=== PATIENT | female | born 1975 | race Caucasian/White ===

== ENCOUNTER 2018-07-01 16:00 | Emergency (ER) | payer BC ==
[2018-07-01] MEDS ORDERED: IPRATROPIUM/ALBUTEROL (0.5MG/3MG) NEB INH ONE (16:48)
[2018-07-01] MEDS ORDERED: METHYLPREDNISOLONE PF 125MG/VIAL IM ONE (16:49)
--- NOTE | 2018-07-01 16:54 | Emergency Department Record ---
History of Present Illness - General Chief Complaint: Shortness of breath Stated Complaint: SCARLET,SINUS/CHEST CONGESTION,SWEATS Time Seen by Provider: 07/01/18 16:42 Source: Patient Mode of Arrival: Ambulatory Limitations: No limitations - History of Present Illness Initial Comments: pt has been sick for a month. she had a course of augmentin and is no better. she has yellow sinus drainage and yellow productive cough. she has been wheezing. MD Complaint: "Asthma attack" Onset/Timin -: Month(s) Known History Of: Asthma, Other Associated Symptoms: Cough Treatments Prior to Arrival: Bronchodilator, Other - Related Data Previous Rx's Medication Instructions Recorded Albuterol Sulfate [Ventolin Hfa] 1 - 2 puff IH .EVERY 4-6 HOURS PRN 07/01/18 #1 inhaler Azithromycin [Zithromax] 250 mg PO DAILY #4 tab 07/01/18 Prednisone [Prednisone 20Mg] 20 mg PO Q12HR #8 tab 07/01/18 Allergies Allergy/AdvReac Type Severity Reaction Status Date / Time sulfamethoxazole Allergy NAUSEA AND Verified 07/01/18 16:22 [From Bactrim] VOMITING trimethoprim [From Bactrim] Allergy NAUSEA AND Verified 07/01/18 16:22 VOMITING Travel Screening - Travel/Exposure Within Last 30 Days Have you traveled within the last 30 days?: No - Travel/Exposure Within Last Year Have you traveled outside the [place] in the last year?: No - Additonal Travel Details Have you been exposed to anyone with a communicable illness?: No - Travel Symptoms Symptom Screening: None Review of Systems Reviewed: No additional complaints except as noted below Constitutional: Reports: As per HPI. Denies: Chills, Fever, Malaise, Night sweats, Weakness, Weight change Eyes: Reports: As per HPI. Denies: Eye discharge, Eye pain, Photophobia, Vision change ENT: Reports: As per HPI. Denies: Congestion, Dental pain, Ear pain, Epistaxis , Hearing loss, Throat pain Respiratory: Reports: As per HPI, Cough, Dyspnea. Denies: Hemoptysis, Stridor, Wheezes Cardiovascular: Reports: As per HPI. Denies: Arrhythmia, Chest pain, Dyspnea on exertion, Edema, Murmurs, Orthopnea, Palpitations, Paroxysmal nocturnal dyspnea, Rheumatic Fever, Syncope Endocrine: Reports: As per HPI. Denies: Fatigue, Heat or cold intolerance, Polydipsia, Polyuria Gastrointestinal: Reports: As per HPI. Denies: Abdominal pain, Constipation, Diarrhea, Hematemesis, Hematochezia, Melena, Nausea, Vomiting Genitourinary: Reports: As per HPI. Denies: Abnormal menses, Discharge, Dyspareunia, Dysuria, Frequency, Hematuria, Incontinence, Retention, Urgency Musculoskeletal: Reports: As per HPI. Denies: Arthralgia, Back pain, Gout, Joint swelling, Myalgia, Neck pain Skin: Reports: As per HPI. Denies: Bruising, Change in color, Change in hair/ nails, Lesions, Pruritus, Rash Neurological: Reports: As per HPI. Denies: Abnormal gait, Confusion, Headache, Numbness, Paresthesias, Seizure, Tingling, Tremors, Vertigo, Weakness Psychiatric: Reports: As per HPI. Denies: Anxiety, Auditory hallucinations, Depression, Homicidal thoughts, Suicidal thoughts, Visual hallucinations Hematological/Lymphatic: Reports: As per HPI. Denies: Anemia, Blood Clots, Easy bleeding, Easy bruising, Swollen glands Past Medical History - SOCIAL HISTORY Smoking Status: Former smoker Alcohol Use: Rare Drug Use: None - RESPIRATORY Hx Respiratory Disorders: Yes Hx Asthma: Yes Hx Bronchitis: Yes Hx Pneumonia: Yes (bronchial) - CARDIOVASCULAR Hx Cardio Disorders: No - NEURO Hx Neuro Disorders: No - GI Hx GI Disorders: Yes Hx Reflux: Yes - Hx Genitourinary Disorders: No - ENDOCRINE Hx Endocrine Disorders: No - MUSCULOSKELETAL Hx Musculoskeletal Disorders: No - PSYCH Hx Psych Problems: Yes Hx Anxiety: Yes - HEMATOLOGY/ONCOLOGY Hx Hematology/Oncology Disorders: No Family Medical History Any Significant Family History?: No Hx Alcohol Use: Father, Mother Hx Anxiety: Father, Mother Hx Cancer: Father Hx Depression: Father, Mother Hx HTN: Father, Mother Hx Resp Disorders: Father, Grandparents Hx Stroke: Father Physical Exam - General General Appearance: Alert, Oriented x3, Cooperative, Mild distress - Head Head exam: Normal inspection - Eye Eye exam: Normal appearance, PERRL, EOMI Pupils: Normal accommodation - ENT ENT exam: Normal exam, Mucous membranes moist, Normal external ear exam, Normal orophraynx Ear exam: Normal external inspection. negative: External canal tenderness Nasal Exam: Normal inspection. negative: Discharge, Sinus tenderness Mouth exam: Normal external inspection, Tongue normal Teeth exam: Normal inspection. negative: Dental caries Throat exam: Normal inspection. negative: Tonsillar erythema, Tonsillar exudate - Neck Neck exam: Normal inspection, Full ROM. negative: Tenderness - Respiratory Respiratory exam: Respiratory distress, Wheezes - Cardiovascular Cardiovascular Exam: Regular rate, Normal rhythm, Normal heart sounds - GI/Abdominal GI/Abdominal exam: Soft, Normal bowel sounds. negative: Tenderness - Rectal Rectal exam: Deferred - exam: Deferred - Extremities Extremities exam: Normal inspection, Full ROM, Normal capillary refill. negative: Tenderness - Back Back exam: Reports: Normal inspection, Full ROM. Denies: Muscle spasm, Rash noted, Tenderness - Neurological Neurological exam: Alert, CN II-XII intact, Normal gait, Oriented X3 - Psychiatric Psychiatric exam: Normal affect, Normal mood - Skin Skin exam: Dry, Intact, Normal color, Warm Course Vital Signs 07/01/18 16:14 Temperature 98.7 F Pulse Rate 87 Respiratory 18 Rate Blood Pressure 142/89 Pulse Ox 97 Disposition Disposition: Discharge Clinical Impression: Asthmatic bronchitis with acute exacerbation Qualifiers: Asthma severity: moderate Asthma persistence: persistent Qualified Code(s): J45.41 - Moderate persistent asthma with (acute) exacerbation Sinusitis Qualifiers: Sinusitis location: unspecified location Chronicity: acute Recurrence: recurrent Qualified Code(s): J01.91 - Acute recurrent sinusitis, unspecified Disposition: Home, Self-Care Condition: (1) Good Instructions: Asthma (ED), Acute Bronchitis (ED), Sinusitis (ED) Additional Instructions: follow up with family doctor. return sooner if worse. Prescriptions: Prednisone [Prednisone 20Mg] 20 mg PO Q12HR #8 tab Albuterol Sulfate [Ventolin Hfa] 1 - 2 puff IH .EVERY 4-6 HOURS PRN #1 inhaler PRN Reason: Difficulty In Breathing Azithromycin [Zithromax] 250 mg PO DAILY #4 tab Forms: Patient Portal Access, Return to Work/School Quality - Quality Measures Quality Measures: N/A - Blood Pressure Screening Does Patient Have Any of the Following: No Blood Pressure Classification: Pre-Hypertensive BP Reading Systolic Measurement: 142 Diastolic Measurement: 89 Screening for High Blood Pressure: < Pre-Hypertensive BP, F/U Documented > [ G8950] Pre-Hypertensive Follow-up Interventions: Follow-up with rescreen every year.
[2018-07-01] MEDS ORDERED: ALBUTEROL SULFATE (0.083%) 2.5 MG/3 ML NEB INH ONE (18:09)
[2018-07-01] MEDS ORDERED: AZITHROMYCIN 500 MG TABLET PO ONE (18:10)
--- NOTE | 2018-07-01 18:26 | Emergency Department Record ---
History of Present Illness - General Chief Complaint: Shortness of breath Stated Complaint: SCARLET,SINUS/CHEST CONGESTION,SWEATS Time Seen by Provider: 07/01/18 16:42 Source: Patient Mode of Arrival: Ambulatory Limitations: No limitations - History of Present Illness Onset/Timin -: Month(s) Known History Of: Asthma, Other Associated Symptoms: Cough Treatments Prior to Arrival: Bronchodilator, Other - Related Data Previous Rx's Medication Instructions Recorded Albuterol Sulfate 0.083% [Neb] 3 ml NEB .EVERY 4-6 HOURS #1 box 07/01/18 [Albuterol Sulfate] Albuterol Sulfate [Ventolin Hfa] 1 - 2 puff IH .EVERY 4-6 HOURS PRN 07/01/18 #1 inhaler Azithromycin [Zithromax] 250 mg PO DAILY #4 tab 07/01/18 Prednisone [Prednisone 20Mg] 20 mg PO Q12HR #8 tab 07/01/18 Allergies Allergy/AdvReac Type Severity Reaction Status Date / Time sulfamethoxazole Allergy NAUSEA AND Verified 07/01/18 16:22 [From Bactrim] VOMITING trimethoprim [From Bactrim] Allergy NAUSEA AND Verified 07/01/18 16:22 VOMITING Travel Screening - Travel/Exposure Within Last 30 Days Have you traveled within the last 30 days?: No - Travel/Exposure Within Last Year Have you traveled outside the [place] in the last year?: No - Additonal Travel Details Have you been exposed to anyone with a communicable illness?: No - Travel Symptoms Symptom Screening: None Review of Systems Constitutional: Reports: As per HPI. Denies: Chills, Fever, Malaise, Night sweats, Weakness, Weight change Eyes: Reports: As per HPI. Denies: Eye discharge, Eye pain, Photophobia, Vision change ENT: Reports: As per HPI. Denies: Congestion, Dental pain, Ear pain, Epistaxis , Hearing loss, Throat pain Respiratory: Reports: As per HPI, Cough, Dyspnea. Denies: Hemoptysis, Stridor, Wheezes Cardiovascular: Reports: As per HPI. Denies: Arrhythmia, Chest pain, Dyspnea on exertion, Edema, Murmurs, Orthopnea, Palpitations, Paroxysmal nocturnal dyspnea, Rheumatic Fever, Syncope Endocrine: Reports: As per HPI. Denies: Fatigue, Heat or cold intolerance, Polydipsia, Polyuria Gastrointestinal: Reports: As per HPI. Denies: Abdominal pain, Constipation, Diarrhea, Hematemesis, Hematochezia, Melena, Nausea, Vomiting Genitourinary: Reports: As per HPI. Denies: Abnormal menses, Discharge, Dyspareunia, Dysuria, Frequency, Hematuria, Incontinence, Retention, Urgency Musculoskeletal: Reports: As per HPI. Denies: Arthralgia, Back pain, Gout, Joint swelling, Myalgia, Neck pain Skin: Reports: As per HPI. Denies: Bruising, Change in color, Change in hair/ nails, Lesions, Pruritus, Rash Neurological: Reports: As per HPI. Denies: Abnormal gait, Confusion, Headache, Numbness, Paresthesias, Seizure, Tingling, Tremors, Vertigo, Weakness Psychiatric: Reports: As per HPI. Denies: Anxiety, Auditory hallucinations, Depression, Homicidal thoughts, Suicidal thoughts, Visual hallucinations Hematological/Lymphatic: Reports: As per HPI. Denies: Anemia, Blood Clots, Easy bleeding, Easy bruising, Swollen glands Past Medical History - SOCIAL HISTORY Smoking Status: Former smoker Alcohol Use: Rare Drug Use: None - RESPIRATORY Hx Respiratory Disorders: Yes Hx Asthma: Yes Hx Bronchitis: Yes Hx Pneumonia: Yes (bronchial) - CARDIOVASCULAR Hx Cardio Disorders: No - NEURO Hx Neuro Disorders: No - GI Hx GI Disorders: Yes Hx Reflux: Yes - Hx Genitourinary Disorders: No - ENDOCRINE Hx Endocrine Disorders: No - MUSCULOSKELETAL Hx Musculoskeletal Disorders: No - PSYCH Hx Psych Problems: Yes Hx Anxiety: Yes - HEMATOLOGY/ONCOLOGY Hx Hematology/Oncology Disorders: No Family Medical History Any Significant Family History?: No Hx Alcohol Use: Father, Mother Hx Anxiety: Father, Mother Hx Cancer: Father Hx Depression: Father, Mother Hx HTN: Father, Mother Hx Resp Disorders: Father, Grandparents Hx Stroke: Father Physical Exam - General Limitations: No limitations Course Vital Signs 07/01/18 07/01/18 07/01/18 16:14 16:52 17:25 Temperature 98.7 F Pulse Rate 87 90 Pulse Rate [ 89 Pulse Ox Probe] Respiratory 18 20 16 Rate Blood Pressure 142/89 Blood Pressure 141/69 [Right Arm] Pulse Ox 97 98 98 07/01/18 18:13 Temperature Pulse Rate 85 Pulse Rate [ Pulse Ox Probe] Respiratory 20 Rate Blood Pressure Blood Pressure [Right Arm] Pulse Ox 99 Disposition Clinical Impression: Asthmatic bronchitis with acute exacerbation Qualifiers: Asthma severity: moderate Asthma persistence: persistent Qualified Code(s): J45.41 - Moderate persistent asthma with (acute) exacerbation Sinusitis Qualifiers: Sinusitis location: unspecified location Chronicity: acute Recurrence: recurrent Qualified Code(s): J01.91 - Acute recurrent sinusitis, unspecified Disposition: Home, Self-Care Condition: (1) Good Instructions: Asthma (ED), Sinusitis (ED), Acute Bronchitis (ED) Additional Instructions: follow up with family doctor. return sooner if worse. Prescriptions: Prednisone [Prednisone 20Mg] 20 mg PO Q12HR #8 tab Albuterol Sulfate [Ventolin Hfa] 1 - 2 puff IH .EVERY 4-6 HOURS PRN #1 inhaler PRN Reason: Difficulty In Breathing Albuterol Sulfate 0.083% [Neb] [Albuterol Sulfate] 3 ml NEB .EVERY 4-6 HOURS #1 box Azithromycin [Zithromax] 250 mg PO DAILY #4 tab Forms: Patient Portal Access, Return to Work/School Quality - Quality Measures Quality Measures: N/A - Blood Pressure Screening Does Patient Have Any of the Following: No Blood Pressure Classification: Pre-Hypertensive BP Reading Systolic Measurement: 142 Diastolic Measurement: 89 Screening for High Blood Pressure: < Pre-Hypertensive BP, F/U Documented > [ G8950] Pre-Hypertensive Follow-up Interventions: Follow-up with rescreen every year.
--- NOTE | 2018-07-03 19:01 | RADIOLOGY REPORT ---
DATE: 07/01/2018 at 1730. EXAM: TWO-VIEW CHEST. HISTORY: Difficulty breathing. TECHNIQUE: Two views of the chest were obtained. FINDINGS: The lungs are clear. Cardiac size and pulmonary vascularity are normal. There are no effusions. IMPRESSION: NEGATIVE CHEST JOB NUMBER: [id number] MTDD
== END 2018-07-01 18:58 | disposition home or self-care (01) ==
LOC: ER 16:00
DX: J45.41 Moderate persistent asthma with (acute) exacerbation (principal); J01.91 Acute recurrent sinusitis, unspecified; Z87.891 Personal history of nicotine dependence
CPT/HCPCS: 71046; 94640; 96372; 99284; J2930; J7613

== ENCOUNTER 2018-12-11 09:44 | Emergency (ER) | payer BC ==
[2018-12-11] MEDS ORDERED: 0.9 % SODIUM CHLORIDE 1,000 ML BAG IV ONE (10:34)
[2018-12-11 10:55] LABS: ABSOLUTE NEUTROPHIL COUNT 5.83; BASO % 0.3 % (0-6); EOS % 5.1 % (0-6); GRAN % 67.4 % (47-80); HEMATOCRIT 38.4 % (35.0-47.0); HEMOGLOBIN 11.8 gm/dl (11.6-16.0); LYMPH % 20.6 % (16-45); MEAN CELL VOLUME 94.1 fl (81-97); MEAN CORPUSCULAR HEMOGLOBIN 28.9 pg (27-33); MEAN CORPUSCULAR HGB CONC 30.7 g/dl (32-36); MEAN PLATELET VOLUME 10.3 fl (7.4-10.4); MONO % 6.6 % (0-9); PLATELET COUNT 342 K/uL (130-400); RED BLOOD COUNT 4.08 M/uL (3.80-5.40); RED CELL DISTRIBUTION WIDTH 14.2 % (11.5-14.5); WHITE BLOOD COUNT W/O DIFF 8.7 K/uL (4.2-12.2)
[2018-12-11 10:56] LABS: URINE APPEARANCE CLEAR; URINE BILIRUBIN NEGATIVE (NEGATIVE); URINE BLOOD SMALL (NEGATIVE); URINE COLOR YELLOW; URINE GLUCOSE (UA) NEGATIVE (NEGATIVE); URINE KETONE NEGATIVE (NEGATIVE); URINE LEUKOCYTE ESTERASE NEGATIVE (NEGATIVE); URINE NITRITE NEGATIVE (NEGATIVE); URINE PROTEIN NEGATIVE (NEGATIVE); URINE UROBILINOGEN 0.2 E.U./dL (0.20 - 1.00)
[2018-12-11 10:57] LABS: HCG,QUALITATIVE URINE NEGATIVE (NEGATIVE)
[2018-12-11 11:03] LABS: URINE BACTERIA FEW; URINE RBC 0 - 2 (NONE SEEN); URINE WBC NONE SEEN (0-2/hpf)
[2018-12-11 11:04] LABS: BLOOD UREA NITROGEN 7 mg/dL (6-20); CREATININE 0.6 mg/dL (0.5-0.9); EST GLOMERULAR FILTRATION RATE > 60 mL/min
[2018-12-11 11:05] LABS: BILIRUBIN,TOTAL < 0.20 mg/dL (0.2-1.0); LIPASE 25 U/L (13-60); TOTAL PROTEIN 6.8 g/dL (6.6-8.7)
[2018-12-11 11:07] LABS: GLUCOSE,RANDOM 97 mg/dL (74-109)
[2018-12-11 11:10] LABS: ALB/GLOB RATIO 1.6 (1.1-1.8); ALBUMIN 4.2 g/dL (4.0-5.0); ALKALINE PHOSPHATASE 61 U/L (35-104); ALT/SGPT 15 U/L (<33); AST/SGOT 13 U/L (10.0-35.0)
--- NOTE | 2018-12-11 11:13 | Emergency Department Record ---
History of Present Illness - General Chief Complaint: Abdominal Pain Stated Complaint: ABD PAIN Time Seen by Provider: 12/11/18 10:26 Source: Patient Mode of Arrival: Ambulatory Limitations: No limitations - History of Present Illness Initial Comments: pt has llq ap and blood in her urine since yesterday Complaint: Abdominal pain Onset/Timin -: Month(s) Location: L Flank, LLQ Radiation: L flank, LLQ Migration to: L Flank, LLQ Severity: Mild Severity scale (1-10): 3 Quality: Aching, Sharp Consistency: Constant, Intermittent Improves With: Nothing Worsens With: Nothing - Related Data LMP (females 10-50): Last week Patient : No Previous Rx's Medication Instructions Recorded Albuterol Sulfate [Ventolin Hfa] 1 - 2 puff IH .EVERY 4-6 HOURS PRN 07/01/18 #1 inhaler Allergies Allergy/AdvReac Type Severity Reaction Status Date / Time sulfamethoxazole AdvReac NAUSEA AND Verified 12/11/18 10:39 [From Bactrim] VOMITING trimethoprim [From Bactrim] AdvReac NAUSEA AND Verified 12/11/18 10:39 VOMITING Travel Screening - Travel/Exposure Within Last 30 Days Have you traveled within the last 30 days?: No Review of Systems Reviewed: No additional complaints except as noted below Constitutional: Reports: As per HPI. Denies: Chills, Fever, Malaise, Night swe ats, Weakness, Weight change Eyes: Reports: As per HPI. Denies: Eye discharge, Eye pain, Photophobia, Vision change ENT: Reports: As per HPI. Denies: Congestion, Dental pain, Ear pain, Epistaxis, Hearing loss, Throat pain Respiratory: Reports: As per HPI. Denies: Cough, Dyspnea, Hemoptysis, Stridor, Wheezes Cardiovascular: Reports: As per HPI. Denies: Arrhythmia, Chest pain, Dyspnea on exertion, Edema, Murmurs, Orthopnea, Palpitations, Paroxysmal nocturnal dyspnea, Rheumatic Fever, Syncope Endocrine: Reports: As per HPI. Denies: Fatigue, Heat or cold intolerance, Polydipsia, Polyuria Gastrointestinal: Reports: As per HPI. Denies: Abdominal pain, Constipation, Diarrhea, Hematemesis, Hematochezia, Melena, Nausea, Vomiting Genitourinary: Reports: As per HPI. Denies: Abnormal menses, Discharge, Dyspareunia, Dysuria, Frequency, Hematuria, Incontinence, Retention, Urgency Musculoskeletal: Reports: As per HPI. Denies: Arthralgia, Back pain, Gout, Joint swelling, Myalgia, Neck pain Skin: Reports: As per HPI. Denies: Bruising, Change in color, Change in hair/ nails, Lesions, Pruritus, Rash Neurological: Reports: As per HPI. Denies: Abnormal gait, Confusion, Headache, Numbness, Paresthesias, Seizure, Tingling, Tremors, Vertigo, Weakness Psychiatric: Reports: As per HPI. Denies: Anxiety, Auditory hallucinations, Depression, Homicidal thoughts, Suicidal thoughts, Visual hallucinations Hematological/Lymphatic: Reports: As per HPI. Denies: Anemia, Blood Clots, Easy bleeding, Easy bruising, Swollen glands Past Medical History - SOCIAL HISTORY Smoking Status: Current every day smoker Alcohol Use: None Drug Use: None - RESPIRATORY Hx Respiratory Disorders: Yes Hx Asthma: Yes Hx Bronchitis: Yes Hx Pneumonia: Yes (bronchial) - CARDIOVASCULAR Hx Cardio Disorders: No - NEURO Hx Neuro Disorders: No - GI Hx GI Disorders: Yes Hx Reflux: Yes - Hx Genitourinary Disorders: No - ENDOCRINE Hx Endocrine Disorders: No - MUSCULOSKELETAL Hx Musculoskeletal Disorders: No - PSYCH Hx Psych Problems: Yes Hx Anxiety: Yes - HEMATOLOGY/ONCOLOGY Hx Hematology/Oncology Disorders: No Family Medical History Any Significant Family History?: Yes Hx Alcohol Use: Father, Mother Hx Anxiety: Father, Mother Hx Cancer: Father Hx Depression: Father, Mother Hx HTN: Father, Mother Hx Resp Disorders: Father, Grandparents Hx Stroke: Father Physical Exam - General General Appearance: Alert, Oriented x3, Cooperative, Mild distress - Head Head exam: Normal inspection - Eye Eye exam: Normal appearance, PERRL, EOMI Pupils: Normal accommodation - ENT ENT exam: Normal exam, Mucous membranes moist, Normal external ear exam, Normal orophraynx Ear exam: Normal external inspection. negative: External canal tenderness Nasal Exam: Normal inspection. negative: Discharge, Sinus tenderness Mouth exam: Normal external inspection, Tongue normal Teeth exam: Normal inspection. negative: Dental caries Throat exam: Normal inspection. negative: Tonsillar erythema, Tonsillar exudate - Neck Neck exam: Normal inspection, Full ROM. negative: Tenderness - Respiratory Respiratory exam: Normal lung sounds bilaterally. negative: Respiratory distress - Cardiovascular Cardiovascular Exam: Regular rate, Normal rhythm, Normal heart sounds - GI/Abdominal GI/Abdominal exam: Soft, Normal bowel sounds, Tenderness (llq) - Rectal Rectal exam: Deferred - exam: Deferred - Extremities Extremities exam: Normal inspection, Full ROM, Normal capillary refill. negative: Tenderness - Back Back exam: Reports: Normal inspection, Full ROM. Denies: Muscle spasm, Rash noted, Tenderness - Neurological Neurological exam: Alert, CN II-XII intact, Normal gait, Oriented X3 - Psychiatric Psychiatric exam: Normal affect, Normal mood - Skin Skin exam: Dry, Intact, Normal color, Warm Course Vital Signs 12/11/18 09:50 Temperature 97.8 F Pulse Rate 101 H Respiratory 20 Rate Blood Pressure 153/86 Pulse Ox 98 - Reevaluation(s) Reevaluation #1: 12/11/18 15:03 ct neg, us shows small cysts bilaterlally Medical Decision Making - Lab Data Result diagrams: 12/11/18 10:45 12/11/18 10:45 Lab Results 12/11/18 12/11/18 Range/Units 10:45 10:45 WBC 8.7 (4.2-12.2) K/uL RBC 4.08 (3.80-5.40) M/uL Hgb 11.8 (11.6-16.0) gm/dl Hct 38.4 (35.0-47.0) % MCV 94.1 (81-97) fl MCH 28.9 (27-33) pg MCHC 30.7 L (32-36) g/dl RDW 14.2 (11.5-14.5) % Plt Count 342 (130-400) K/uL MPV 10.3 (7.4-10.4) fl Gran % 67.4 (47-80) % Lymphocytes % 20.6 (16-45) % Monocytes % 6.6 (0-9) % Eosinophils % 5.1 (0-6) % Basophils % 0.3 (0-6) % Absolute Neutrophils 5.83 Urine Color Yellow Urine Appearance Clear Urine pH 6.5 (5.0-8.0) Ur Specific [place] 1.020 (1.002-1.030) Urine Protein Negative (NEGATIVE) Urine Glucose (UA) Negative (NEGATIVE) Urine Ketones Negative (NEGATIVE) Urine Blood Small H (NEGATIVE) Urine Nitrite Negative (NEGATIVE) Urine Bilirubin Negative (NEGATIVE) Urine Urobilinogen 0.2 (0.20 - 1.00) E.U./dL Ur Leukocyte Esterase Negative (NEGATIVE) Urine RBC 0 - 2 (NONE SEEN) Urine WBC None seen (0-2/hpf) Ur Epithelial Cells 10 - 15 (FEW) Urine Bacteria Few Urine HCG, Qual Negative (NEGATIVE) Disposition Disposition: Discharge Clinical Impression: Abdominal pain Qualifiers: Abdominal location: left lower quadrant Qualified Code(s): R10.32 - Left lower quadrant pain Disposition: Home, Self-Care Condition: (1) Good Instructions: Abdominal Pain (ED) Additional Instructions: follow up with family doctor and with GI doctor. return sooner if worse. Forms: Patient Portal Access Quality - Quality Measures Quality Measures: N/A - Blood Pressure Screening Does Patient Have Any of the Following: No Blood Pressure Classification: Pre-Hypertensive BP Reading Systolic Measurement: 153 Diastolic Measurement: 86 Screening for High Blood Pressure: < Pre-Hypertensive BP, F/U Documented > [G8950] Pre-Hypertensive Follow-up Interventions: Follow-up with rescreen every year.
--- NOTE | 2018-12-12 09:01 | CT SCAN REPORT ---
EXAM: EMERGENCY CT OF THE ABDOMEN AND PELVIS WITHOUT CONTRAST HISTORY: INTERMITTENT LEFT LOWER QUADRANT PAIN FOR 2-3 MONTHS. TECHNIQUE: Axial CT scan of the abdomen and pelvis was obtained without oral or IV contrast. Comparison: No prior CT with which to compare. FINDINGS: No calcified gallstones are seen within the gallbladder. No definite intrarenal calculi identified on either side. No hydronephrosis or hydroureter is seen on either side. As such the nondilated ureters are somewhat difficult to follow in their entire course throughout the retroperitoneum and pelvis in their nondilated state, but no definite ureteral calculus seen on either side and no bladder calculus evident. There are a couple linear metallic densities in the pelvis bilaterally probably related to prior tubal ligation procedure. Tiny umbilical hernia containing adipose tissue, but no bowel. Evaluation of the bowel and viscera extremely limited without oral or IV contrast. Given this limitation, no definite hepatic, splenic, adrenal, pancreatic, or renal mass identified. There is some fullness of the uterine fundus measuring about 7.3 cm in transverse diameter. There is probably a small left ovarian cyst about 1.4 cm in size. If there is clinical concern for the gynecologic viscera, follow-up pelvic ultrasound would be suggested for further evaluation. The appendix is visualized and appears negative with no appendicitis evident. No definite diverticulitis seen, however, there is some hazy density in the adipose tissue adjacent to the anterior aspect of the upper sigmoid colon. This suggests some mild inflammatory change in this region and perhaps this represents a mild epiploic appendagitis. Minor streaky atelectasis or infiltrate in both lung bases. No definite free intraperitoneal air or free intraperitoneal fluid evident. Mild spurring in the mid lumbar spine. IMPRESSION: 1. NO DEFINITE URINARY TRACT CALCULI OR HYDRONEPHROSIS EVIDENT. 2. NO APPENDICITIS IDENTIFIED. 3. APPEARANCE SUGGESTING SOME MILD INFLAMMATORY CHANGE ADJACENT TO THE ANTERIOR ASPECT OF THE UPPER SIGMOID COLON, BUT NO ASSOCIATED INFLAMED DIVERTICULUM IS SEEN. THIS MAY REPRESENT SOME MILD NONSPECIFIC INFLAMMATORY CHANGE, PERHAPS EPIPLOIC APPENDAGITIS. 4. SMALL UMBILICAL HERNIA CONTAINING ADIPOSE TISSUE, BUT NO BOWEL. 5. SOME FULLNESS OF THE UTERUS AND PROBABLY A SMALL LEFT OVARIAN CYST. 6. PROBABLE POSTOP TUBAL LIGATION. JOB NUMBER: [id number] [facility] [place] [facility]
--- NOTE | 2018-12-12 09:32 | ULTRASOUND REPORT ---
EXAM: PELVIC ULTRASOUND WITH TRANSVAGINAL AND DOPPLER HISTORY: PAIN LEFT ADNEXA AND FLANK PAIN. NEGATIVE TEST. TECHNIQUE: Real-time ultrasound examination of the pelvis was performed utilizing transabdominal and transvaginal technique. Doppler ultrasound was performed because of pain, with color flow and spectral analysis Doppler. Comparison: No prior pelvic ultrasound with which to compare. Comparison is made with the pelvic CT performed earlier today on 12/11/18. FINDINGS: TRANSABDOMINAL PELVIC ULTRASOUND: The uterus is identified measuring about 4.4 cm in AP x 6.6 cm in transverse diameters x 9.2 cm in length. The endometrial stripe measured at about 6.3 mm in thickness, within normal limits. No definite intrauterine fluid collection or focal uterine myometrial mass evident on the transabdominal images. The left ovary is identified measuring about 4.2 cm in size with arterial flow demonstrated with Doppler. The right ovary is identified measuring 3.1 cm in size with venous flow evident with Doppler. No definite adnexal mass seen on either side with just some tiny ovarian cysts present bilaterally. No definite free fluid seen. TRANSVAGINAL PELVIC ULTRASOUND: In an effort to better visualize the gynecologic viscera, transvaginal study also performed. Numerous small cervical nabothian cysts are seen, all less than 1 cm in size. A small amount of nonspecific free fluid in the cul-de-sac may simply be physiologic in nature. The endometrial stripe measured at about 8 mm in diameter, within normal limits. No definite intrauterine fluid collection or focal uterine myometrial mass identified. The left ovary is identified measuring about 3.4 cm in size and containing some small follicles. Venous flow is demonstrated in the left ovary. The right ovary is identified measuring about 3.1 cm in size and demonstrating some small follicles. Arterial flow evident in the right ovary. Some additional limited images of the patient's left side of her back were obtained apparently of an area of a clinically evident lump as indicated by the hydroelectric station operator. The hydroelectric station operator has marked an approximately 1.8 x 1.8 x 1.1 cm solid appearing somewhat oval structure. This is not a simple cyst and is of uncertain significance. This could be a lipoma although is nonspecific and correlation with physical exam is suggested. IMPRESSION: 1. MULTIPLE SMALL CERVICAL NABOTHIAN CYSTS. THE UTERUS APPEARS OTHERWISE NEGATIVE. 2. SMALL AMOUNT OF NONSPECIFIC FREE FLUID IN THE CUL-DE-SAC MAY SIMPLY BE PHYSIOLOGIC. 3. SMALL CYSTS IN BOTH OVARIES. 4. OVAL SOLID MASS LIKE AREA ALONG THE PATIENT'S BACK ABOUT 1.8 CM IN MAXIMUM DIAMETER, NONSPECIFIC DESCRIBED ABOVE. JOB NUMBER: [id number] MTDD
== END 2018-12-11 15:18 | disposition home or self-care (01) ==
LOC: ER 09:44
DX: R10.32 Left lower quadrant pain (principal); F17.210 Nicotine dependence, cigarettes, uncomplicated
CPT/HCPCS: 74176; 76830; 76856; 80053; 81001; 81025; 83690; 85025; 99284; J7030

== ENCOUNTER 2019-07-10 18:05 | Observation (INO) | payer BC ==
[2019-07-10] MEDS ORDERED: IPRATROPIUM/ALBUTEROL (0.5MG/3MG) NEB INH ONE (18:32)
[2019-07-10] MEDS ORDERED: 0.9 % SODIUM CHLORIDE 1,000 ML BAG IV ONE (18:40)
--- NOTE | 2019-07-10 18:45 | Emergency Department Record ---
History of Present Illness - General Chief Complaint: Shortness of breath Stated Complaint: SCARLET,DX FLU A AND B Time Seen by Provider: 07/10/19 18:34 Source: Patient Mode of Arrival: Ambulatory Limitations: No limitations - History of Present Illness Initial Comments: The patient is here due to not feeling well for 18 hours. She has developed a cough, congestion, and SOB since this morning. The patient does have a hx of asthma and does feel like she is wheezing. She was in the [facility] 8 hours ago and was diagnosed with Flu A and B and did have a neg CXR 7 hours ago. The patient did also receive a Duoneb tx, steroid shot and did feel better. Now due to the SOB she did return to the ER. Presently she is doing better and did have a Duoneb in the ER and has RA biox of 98%. There has been no fever, nausea, vomiting, or diarrhea. The patient has a hx of mild asthma and has never been admitted to the ICU or Intubated. She also has been admitted to the hospital as an adult but it was many years ago. MD Complaint: "Asthma attack", Cough, Shortness of breath Onset/Timin -: Hour(s) Improves With: Nothing Worsens With: Nothing Known History Of: Asthma - Related Data Previous Rx's Medication Instructions Recorded Albuterol Sulfate [Ventolin Hfa] 1 - 2 puff IH .EVERY 4-6 HOURS PRN 07/01/18 #1 inhaler Allergies Allergy/AdvReac Type Severity Reaction Status Date / Time sulfamethoxazole AdvReac NAUSEA AND Verified 07/10/19 18:31 [From Bactrim] VOMITING trimethoprim [From Bactrim] AdvReac NAUSEA AND Verified 07/10/19 18:31 VOMITING Travel/Exposure Screening - Travel/Exposure Within Last 30 Days Have you traveled within the last 30 days?: No - Travel/Exposure Within Last Year Have you traveled outside the [place] in the last year?: No - Additonal Travel/Exposure Details Have you been exposed to anyone with a communicable illness?: No Review of Systems Constitutional: Denies: Chills, Fever Eyes: Denies: Eye discharge, Eye pain ENT: Reports: Congestion Respiratory: Reports: Cough, Dyspnea. Denies: Hemoptysis Cardiovascular: Denies: Chest pain Endocrine: Reports: Fatigue Gastrointestinal: Denies: Nausea Genitourinary: Denies: Dysuria Musculoskeletal: Denies: Arthralgia Past Medical History - SOCIAL HISTORY Smoking Status: Light tobacco smoker (<10/day) Alcohol Use: Rare Drug Use: None - RESPIRATORY Hx Respiratory Disorders: Yes Hx Asthma: Yes Hx Bronchitis: Yes Hx Pneumonia: Yes (bronchial) - CARDIOVASCULAR Hx Cardio Disorders: No - NEURO Hx Neuro Disorders: No - GI Hx GI Disorders: Yes Hx Reflux: Yes - Hx Genitourinary Disorders: No - ENDOCRINE Hx Endocrine Disorders: No - MUSCULOSKELETAL Hx Musculoskeletal Disorders: No - PSYCH Hx Psych Problems: Yes Hx Anxiety: Yes - HEMATOLOGY/ONCOLOGY Hx Hematology/Oncology Disorders: No Family Medical History Any Significant Family History?: No Hx Alcohol Use: Father, Mother Hx Anxiety: Father, Mother Hx Cancer: Father Hx Depression: Father, Mother Hx HTN: Father, Mother Hx Resp Disorders: Father, Grandparents Hx Stroke: Father Physical Exam - General General Appearance: Alert, Oriented x3, Cooperative, No acute distress (The patient is laying flat on the bed in no distress.) - Head Head exam: Atraumatic, Normocephalic, Normal inspection - ENT Throat exam: Normal inspection. negative: Tonsillar erythema, Tonsillar exudate - Neck Neck exam: Normal inspection, Full ROM. negative: Tenderness - Respiratory Respiratory exam: Normal lung sounds bilaterally (The lungs are clear bilaterally. ). negative: Accessory muscle use, Decreased breath sounds, Rales, Respiratory distress, Rhonchi, Stridor, Wheezes - Cardiovascular Cardiovascular Exam: Regular rate, Normal rhythm, Normal heart sounds - GI/Abdominal GI/Abdominal exam: Soft, Normal bowel sounds. negative: Tenderness - Extremities Extremities exam: Normal inspection, Full ROM, Normal capillary refill. negative: Tenderness - Neurological Neurological exam: Alert, Normal gait. negative: Abnormal gait, Motor sensory deficit - Psychiatric Psychiatric exam: negative: Anxious - Skin Skin exam: negative: Rash Course Vital Signs 07/10/19 07/10/19 18:17 18:34 Temperature 98.7 F Pulse Rate 125 H 124 H Respiratory 24 28 H Rate Blood Pressure 139/89 Pulse Ox 96 95 - Reevaluation(s) Reevaluation #1: The patient is doing very well at this time. She is laying flat in no respiratory distress with a RR of 22, HR of 120 and a RA biox of 98%. 02/19/20 18:56 Reevaluation #2: The patient is feeling better but is still wheezing at this time. Her RA biox is running 89-90% at this time and she is still having some expiratory wheezes in the lower lobes. The patient is still tachypnic and tachycardic so I do feel she will need to be admitted overnight for treatment and she does agree. I then did discuss the case with Lakia ([employer]) who does accept the admission for Dr. Quintanilla. 07/10/19 20:09 Medical Decision Making - Data Complexity MDM Data: Labs Ordered and/or Reviewed - Lab Data Result diagrams: 07/10/19 18:15 07/10/19 18:15 Disposition Disposition: Admit Clinical Impression: Asthma exacerbation Qualifiers: Asthma severity: unspecified severity Asthma persistence: persistent Qualified Code(s): J45.901 - Unspecified asthma with (acute) exacerbation Disposition: Still a Patient at [facility] Decision to Admit: Admit from ER Decision to Admit Date: 07/10/19 Decision to Admit Time: 20:11 Accepting Physician: [place] Time Discussed w/Accepting Physician: 20:11 Condition: (2) Stable Forms: Patient Portal Access Time of Disposition: 20:11 Quality - Quality Measures Quality Measures: N/A - Blood Pressure Screening View Details: Yes Does Patient Have Any of the Following: No Blood Pressure Classification: Pre-Hypertensive BP Reading Systolic Measurement: 139 Diastolic Measurement: 89 Screening for High Blood Pressure: < Pre-Hypertensive BP, F/U Documented > [[id number]] Pre-Hypertensive Follow-up Interventions: Referral to alternative/primary care provider.
[2019-07-10] MEDS ORDERED: ACETAMINOPHEN 325 MG TAB PO ONE (18:57)
[2019-07-10 19:05] LABS: ABSOLUTE NEUTROPHIL COUNT 17.12; HEMATOCRIT 43.4 % (35.0-47.0); HEMOGLOBIN 13.6 gm/dl (11.6-16.0); MEAN CELL VOLUME 93.1 fl (81-97); MEAN CORPUSCULAR HEMOGLOBIN 29.2 pg (27-33); MEAN CORPUSCULAR HGB CONC 31.3 g/dl (32-36); MEAN PLATELET VOLUME 10.9 fl (7.4-10.4); PLATELET COUNT 345 K/uL (130-400); RED BLOOD COUNT 4.66 M/uL (3.80-5.40); RED CELL DISTRIBUTION WIDTH 14.4 % (11.5-14.5); WHITE BLOOD COUNT W/O DIFF 17.6 K/uL (4.2-12.2)
[2019-07-10] MEDS: ALBUTEROL SULFATE (0.083%) 2.5 MG/3 ML NEB INH ONE (19:05)
[2019-07-10 19:19] LABS: BLOOD UREA NITROGEN 7 mg/dL (6-20); CREATININE 0.8 mg/dL (0.5-0.9); EST GLOMERULAR FILTRATION RATE > 60 mL/min; PLATELET ESTIMATE NORMAL (NORMAL); TOTAL PROTEIN 9.1 g/dL (6.6-8.7)
[2019-07-10 19:21] LABS: GLUCOSE,RANDOM 172 mg/dL (74-109)
[2019-07-10 19:24] LABS: ALB/GLOB RATIO 1.3 (1.1-1.8); ALBUMIN 5.1 g/dL (4.0-5.0); ALKALINE PHOSPHATASE 81 U/L (35-104); ALT/SGPT 17 U/L (<33); AST/SGOT 17 U/L (10.0-35.0)
[2019-07-10] MEDS ORDERED: 0.9 % SODIUM CHLORIDE 1000ML 1,000 ML IV ONE (21:12)
[2019-07-10] MEDS ORDERED: CYCLOBENZAPRINE 10MG TABLET PO PRN (21:20)
[2019-07-10] MEDS: IPRATROPIUM/ALBUTEROL (0.5MG/3MG) NEB INH SCH (21:54)
[2019-07-10] MEDS: OSTELTAMIVIR 75 MG CAP PO SCH (23:24)
[2019-07-11] MEDS: ALBUTEROL SULFATE (0.083%) 2.5 MG/3 ML NEB INH ONE (01:35)
[2019-07-11] MEDS: IBUPROFEN 600 MG TABLET PO PRN ×3 (01:48→20:45)
[2019-07-11] MEDS: IPRATROPIUM/ALBUTEROL (0.5MG/3MG) NEB INH SCH ×5 (05:34→21:57)
[2019-07-11] MEDS: ACETAMINOPHEN 325 MG TAB PO PRN (05:58)
--- NOTE | 2019-07-11 05:58 | RADIOLOGY REPORT ---
EXAMINATION: Two View Chest Radiographs EXAM DATE: 07/11/2019 5:52 AM TECHNIQUE: Frontal and lateral views INDICATION: SCARLET and Influenza COMPARISON: None ENCOUNTER: Not applicable FINDINGS: Cardiomediastinal structures stable. No pulmonary consolidation or infiltration. No pneumothorax or p leural effusion. IMPRESSION: No acute abnormality Dictated by: Taras Alvarez MD on 07/11/2019 5:54 AM. .
[2019-07-11 06:42] LABS: ABSOLUTE NEUTROPHIL COUNT 12.62; HEMATOCRIT 37.9 % (35.0-47.0); HEMOGLOBIN 11.7 gm/dl (11.6-16.0); LYMPH % 2.7 % (16-45); MEAN CELL VOLUME 93.6 fl (81-97); MEAN CORPUSCULAR HEMOGLOBIN 28.9 pg (27-33); MEAN CORPUSCULAR HGB CONC 30.9 g/dl (32-36); MEAN PLATELET VOLUME 10.3 fl (7.4-10.4); MONO % 4.3 % (0-9); PLATELET COUNT 282 K/uL (130-400); RED BLOOD COUNT 4.05 M/uL (3.80-5.40); RED CELL DISTRIBUTION WIDTH 14.1 % (11.5-14.5); WHITE BLOOD COUNT W/O DIFF 13.6 K/uL (4.2-12.2)
[2019-07-11 07:06] LABS: BLOOD UREA NITROGEN 9 mg/dL (6-20); C-REACTIVE PROTEIN 8.86 mg/dL (<0.5); CREATININE 0.6 mg/dL (0.5-0.9); EST GLOMERULAR FILTRATION RATE > 60 mL/min; GLUCOSE,RANDOM 139 mg/dL (74-109)
[2019-07-11 07:09] LABS: ANISOCYTOSIS 1+; PLATELET ESTIMATE NORMAL (NORMAL)
[2019-07-11] MEDS: METHYLPREDNISOLONE PF 125MG/VIAL IVP SCH (09:58)
[2019-07-11] MEDS: OSTELTAMIVIR 75 MG CAP PO SCH ×2 (09:59→22:10)
--- NOTE | 2019-07-11 10:24 | History & Physical ---
History of Present Illness - Date of Service Date of Service for History & Physical: 07/11/19 - History of Present Illness Admitting Diagnosis: 1. Acute Asthma Exacerbation with Influenza. History of Present Illness: 43 year old female patient presented to ED for evaluation of worsening SOB. Patient woke up 12 hours prior with fatigue, SOB, cough, and chills/fever. Patient reports being seen in [facility] earlier that day and diagnosed with Influenza A&B and started on Tamiflu. Patient reports a history of asthma which has been worsening over the past 24 hours. Received Solumedrol 125mg IM while in [facility], and had been using her nebulizer q4h with no relief. PMH: asthma (advair and nebulizer), current smoker PCP: Dr. Hamilton ED Course: CXR: no acute cardiopulmonary process Influenza A&B positive CRP 9.23 WBC 17.6 Solumedrol, Duoneb q4h, supplemental oxygen, fluids 07/11/19: Patient A&O x 4, resting comfortably in bed. Conversational dyspnea continues, receiving supplemental oxygen 2L via [place]. Continue with steroids and treatments due to continued wheezing. Travel/Exposure Screening - Travel/Exposure Within Last 30 Days Have you traveled within the last 30 days?: No - Travel/Exposure Within Last Year Have you traveled outside the [place] in the last year?: No - Additonal Travel/Exposure Details Have you been exposed to anyone with a communicable illness?: Yes Exposure Details:: future brother in law sick - Travel Symptoms Symptom Screening: Chills, Cough, Shortness of Breath Review of Systems Reviewed: No additional complaints except as noted below Constitutional: Reports: Fever, Malaise, Weakness. Denies: Chills Eyes: Denies: Eye discharge, Eye pain ENT: Reports: Congestion Respiratory: Reports: Cough, Dyspnea. Denies: Hemoptysis Cardiovascular: Denies: Chest pain Endocrine: Reports: Fatigue Gastrointestinal: Denies: Nausea Genitourinary: Denies: Dysuria Musculoskeletal: Denies: Arthralgia Past Medical History - SOCIAL HISTORY Smoking Status: Light tobacco smoker (<10/day) Alcohol Use: None Drug Use: None - RESPIRATORY Hx Respiratory Disorders: Yes Hx Asthma: Yes Hx Bronchitis: Yes Hx Pneumonia: Yes (bronchial) - CARDIOVASCULAR Hx Cardio Disorders: No - NEURO Hx Neuro Disorders: No - GI Hx GI Disorders: Yes Hx Reflux: Yes - Hx Genitourinary Disorders: No - ENDOCRINE Hx Endocrine Disorders: No - MUSCULOSKELETAL Hx Musculoskeletal Disorders: No - PSYCH Hx Psych Problems: Yes Hx Anxiety: Yes - HEMATOLOGY/ONCOLOGY Hx Hematology/Oncology Disorders: No Family Medical History Any Significant Family History?: No Hx Alcohol Use: Father, Mother Hx Anxiety: Father, Mother Hx Cancer: Father Hx Depression: Father, Mother Hx HTN: Father, Mother Hx Resp Disorders: Father, Grandparents Hx Stroke: Father H&P Meds/Allergies - Allergies Allergies: Allergies Allergy/AdvReac Type Severity Reaction Status Date / Time sulfamethoxazole AdvReac NAUSEA AND Verified 07/10/19 18:31 [From Bactrim] VOMITING trimethoprim [From Bactrim] AdvReac NAUSEA AND Verified 07/10/19 18:31 VOMITING - Home Medications Previous Rx's Medication Instructions Recorded Albuterol Sulfate [Ventolin Hfa] 1 - 2 puff IH .EVERY 4-6 HOURS PRN 07/01/18 #1 inhaler - Active Medications Active Medications: Current Medications Acetaminophen (Tylenol 325mg) 650 mg PO Q4H PRN PRN Reason: PAIN - MILD(1-4)/FEVER Last Admin: 07/11/19 05:58 Dose: 650 mg Documented by: Albuterol Sulfate (Albuterol Sulfate) 2.5 mg INH Q4H PRN PRN Reason: DIFFICULTY IN BREATHING Albuterol/Ipratropium (Duoneb) 3 ml INH RESP.Q4H.[facility] Last Admin: 07/11/19 05:34 Dose: 3 ml Documented by: Cyclobenzaprine HCl (Flexeril) 5 mg PO TID PRN PRN Reason: MUSCLE SPASMS Ibuprofen (Motrin 600mg) 600 mg PO Q8H PRN PRN Reason: FEVER Last Admin: 07/11/19 09:59 Dose: 600 mg Documented by: Methylprednisolone Sodium Succinate (Solu-Medrol) 60 mg IVP DAILY [facility] Last Admin: 07/11/19 09:58 Dose: 60 mg Documented by: Oseltamivir Phosphate (Tamiflu) 75 mg PO BID [facility] Stop: 07/15/19 10:01 Last Admin: 07/10/19 23:24 Dose: 75 mg Documented by: Physical Exam - Vital Signs Vital Signs: Vital Signs - Last 24 Hrs Temp Pulse Pulse Resp BP BP Pulse Ox 07/11/19 05:35 102 H 12 99 07/11/19 04:00 98.8 F 97 H 20 129/67 98 07/11/19 01:36 115 H 20 98 07/10/19 21:55 100 H 24 97 07/10/19 21:52 97 07/10/19 21:30 98.1 F 113 H 20 158/97 94 L 07/10/19 21:17 113 H 24 137/76 94 L 07/10/19 20:10 115 H 24 138/66 93 L 07/10/19 19:05 120 H 26 H 97 07/10/19 18:34 124 H 28 H 95 07/10/19 18:17 98.7 F 125 H 24 139/89 96 - General General Appearance: Alert, Oriented x3, Cooperative, No acute distress Limitations: No limitations - Head Head exam: Atraumatic, Normocephalic, Normal inspection - Eye Eye exam: Normal appearance, PERRL - ENT ENT exam: Mucous membranes moist Ear exam: Normal external inspection Nasal Exam: Normal inspection Mouth exam: Normal external inspection Throat exam: Normal inspection. negative: Tonsillar erythema, Tonsillar exudate - Neck Neck exam: Normal inspection, Full ROM. negative: Tenderness - Respiratory Respiratory exam: Wheezes (upper lobes bilaterally). negative: Accessory muscle use, Decreased breath sounds, Rales, Respiratory distress, Rhonchi, Stridor - Cardiovascular Cardiovascular Exam: Regular rate, Normal rhythm, Normal heart sounds Peripheral Pulses: 2+: Radial (R), Radial (L), Dorsalis Pedis (R), Dorsalis Pedis (L) - GI/Abdominal GI/Abdominal exam: Soft, Normal bowel sounds. negative: Tenderness - Rectal Rectal exam: Deferred - exam: Deferred - Extremities Extremities exam: Normal inspection, Full ROM, Normal capillary refill. negative: Pedal edema, Tenderness - Neurological Neurological exam: Alert, Normal gait, Oriented X3. negative: Abnormal gait, Motor sensory deficit - Psychiatric Psychiatric exam: Normal affect, Normal mood. negative: Anxious - Skin Skin exam: Dry, Normal color, Warm. negative: Rash Results - Labs Result Diagrams: 07/11/19 06:35 07/11/19 06:35 Labs Last 24 Hours: Laboratory Results - last 24 hr 07/10/19 07/10/19 07/10/19 18:15 18:15 18:15 WBC 17.6 H RBC 4.66 Hgb 13.6 Hct 43.4 MCV 93.1 MCH 29.2 MCHC 31.3 L RDW 14.4 Plt Count 345 MPV 10.9 H Neutrophils % 92.0 H Band Neutrophils % 3.0 Lymphocytes % Monocytes % Eosinophils % Not Reportable Basophils % Not Reportable Absolute Neutrophils 17.12 Lymphocytes 4.0 L Monocytes 1.0 Platelet Estimate Normal RBC Morphology Normal Anisocytosis Sodium 135 L Potassium 3.5 Chloride 96 L Carbon Dioxide 23.0 Anion Gap 16.0 BUN 7 Creatinine 0.8 Estimated GFR > 60 Random Glucose 172 H Calcium 9.7 Total Bilirubin 0.40 AST 17 ALT 17 Alkaline Phosphatase 81 C-Reactive Protein 9.23 H Total Protein 9.1 H Albumin 5.1 H Globulin 4.0 Albumin/Globulin Ratio 1.3 07/11/19 07/11/19 06:35 06:35 WBC 13.6 H RBC 4.05 Hgb 11.7 Hct 37.9 MCV 93.6 MCH 28.9 MCHC 30.9 L RDW 14.1 Plt Count 282 MPV 10.3 Neutrophils % 88.0 H Band Neutrophils % 1.0 Lymphocytes % 2.7 L Monocytes % 4.3 Eosinophils % 0.0 Basophils % 0.0 Absolute Neutrophils 12.62 Lymphocytes 6.0 L Monocytes 5.0 Platelet Estimate Normal RBC Morphology Anisocytosis 1+ Sodium 141 Potassium 3.8 Chloride 108 H Carbon Dioxide 22.0 Anion Gap 11.0 BUN 9 Creatinine 0.6 Estimated GFR > 60 Random Glucose 139 H Calcium 8.6 Total Bilirubin AST ALT Alkaline Phosphatase C-Reactive Protein 8.86 H Total Protein Albumin Globulin Albumin/Globulin Ratio - Imaging and Cardiology Chest x-ray Status: Report reviewed VTE H&P Assessment - Risk for VTE Risk for VTE: No Risk Level: Low Risk Assessment Date: 07/11/19 Risk Assessment Time: 10:25 VTE Orders Placed or Will Be Placed: No VTE Reason for No Prophylaxis: Not Indicated Plan - Detailed Diagnosis and Plan (1) Asthma exacerbation Current Visit: Yes Status: Acute Qualifiers: Asthma severity: unspecified severity Asthma persistence: persistent Qualified Code(s): J45.901 - Unspecified asthma with (acute) exacerbation Base Code: J45.901 - UNSPECIFIED ASTHMA WITH (ACUTE) EXACERBATION Comment: 07/11/19 - Pulse ox 89-90% RA in ED, supplemental oxygen to keep pulse ox >92% - CXR: no acute process - Afebrile - WBC improving, 17.6 to 13.6 - CRP improving, 9.23 to 8.86 - Continue Solumedrol and scheduled albuterol nmt - Adding Breo (2) Influenza Current Visit: Yes Status: Acute Base Code: J11.1 - FLU DUE TO UNIDENTIFIED INFLUENZA VIRUS W OTH RESP MANIFEST Comment: 07/11/19 - Influenza A&B positive - Tamiflu 75mg BID - Droplet precautions in place (3) DVT prophylaxis Current Visit: Yes Status: Acute Base Code: Z29.9 - ENCOUNTER FOR PROPHYLACTIC MEASURES, UNSPECIFIED Comment: 07/11/19 - Low risk due to age - Encourage ambulation within the room (4) Full code status Current Visit: Yes Status: Acute Base Code: Z78.9 - OTHER SPECIFIED HEALTH STATUS Comment: 07/11/19 - Full code this admission
[2019-07-11] MEDS ORDERED: 0.9 % SODIUM CHLORIDE 1000ML 1,000 ML IV SCH (10:45)
[2019-07-11] MEDS: BREO (FLUTICASONE/VILANTEROL) 200MCG/25MCG INHALER INH SCH (11:02)
[2019-07-11] MEDS: ALBUTEROL SULFATE (0.083%) 2.5 MG/3 ML NEB INH PRN (16:48)
[2019-07-12] MEDS: ACETAMINOPHEN 325 MG TAB PO PRN ×2 (03:56→09:51)
[2019-07-12] MEDS: ALBUTEROL SULFATE (0.083%) 2.5 MG/3 ML NEB INH PRN (03:59)
[2019-07-12] MEDS: IPRATROPIUM/ALBUTEROL (0.5MG/3MG) NEB INH SCH ×4 (06:33→17:27)
[2019-07-12 07:14] LABS: ABSOLUTE NEUTROPHIL COUNT 12.59; HEMATOCRIT 34.8 % (35.0-47.0); HEMOGLOBIN 10.7 gm/dl (11.6-16.0); MEAN CELL VOLUME 94.3 fl (81-97); MEAN CORPUSCULAR HGB CONC 30.7 g/dl (32-36); MEAN PLATELET VOLUME 10.9 fl (7.4-10.4); PLATELET COUNT 260 K/uL (130-400); RED BLOOD COUNT 3.69 M/uL (3.80-5.40); RED CELL DISTRIBUTION WIDTH 14.6 % (11.5-14.5); WHITE BLOOD COUNT W/O DIFF 14.4 K/uL (4.2-12.2)
[2019-07-12 07:21] LABS: MEAN CORPUSCULAR HEMOGLOBIN 28.9 pg (27-33)
[2019-07-12 07:35] LABS: BLOOD UREA NITROGEN 13 mg/dL (6-20); CREATININE 0.6 mg/dL (0.5-0.9); EST GLOMERULAR FILTRATION RATE > 60 mL/min; GLUCOSE,RANDOM 117 mg/dL (74-109)
[2019-07-12 07:48] LABS: PLATELET ESTIMATE NORMAL (NORMAL)
[2019-07-12] MEDS: METHYLPREDNISOLONE PF 125MG/VIAL IVP SCH (09:51)
[2019-07-12] MEDS: OSTELTAMIVIR 75 MG CAP PO SCH (09:51)
[2019-07-12] MEDS ORDERED: ALBUTEROL (0.5% CONCENTRATED) 2.5 MG/0.5 ML VIAL.NEB INH ONE (10:38)
[2019-07-12] MEDS: BREO (FLUTICASONE/VILANTEROL) 200MCG/25MCG INHALER INH SCH (13:51)
[2019-07-12] MEDS: IBUPROFEN 600 MG TABLET PO PRN (16:23)
--- NOTE | 2019-07-12 17:21 | Discharge Summary ---
Providers Discharge Summary Date: 07/12/19 Date of admission: 07/10/19 21:26 Expected Date of Discharge: 07/12/19 Attending physician: Nikhil Quintanilla Physical Exam - Vital Signs Vital Signs: Vital Signs - Last 24 Hrs Temp Pulse Pulse Resp BP Pulse Ox 07/12/19 15:21 105 H 20 97 07/12/19 13:52 109 H 18 98 07/12/19 12:00 99.0 F 114 H 18 156/85 95 07/12/19 10:44 110 H 20 96 07/12/19 10:16 110 H 22 96 07/12/19 09:00 18 07/12/19 08:00 98.5 F 103 H 17 151/90 97 07/12/19 06:34 112 H 16 95 07/12/19 04:01 106 H 18 95 07/12/19 04:00 99.2 F 107 H 20 155/97 95 07/12/19 00:00 99.1 F 101 H 18 95 07/11/19 21:59 110 H 16 95 07/11/19 20:00 98.8 F 118 H 20 161/81 95 07/11/19 19:37 85 14 96 - General General Appearance: Alert, Oriented x3, Cooperative, No acute distress Limitations: No limitations - Head Head exam: Atraumatic, Normocephalic, Normal inspection - Eye Eye exam: Normal appearance, PERRL - ENT ENT exam: Mucous membranes moist Ear exam: Normal external inspection Nasal Exam: Normal inspection Mouth exam: Normal external inspection Throat exam: Normal inspection. negative: Tonsillar erythema, Tonsillar exudate - Neck Neck exam: Normal inspection, Full ROM. negative: Tenderness - Respiratory Respiratory exam: Wheezes (upper lobes bilaterally). negative: Accessory muscle use, Decreased breath sounds, Rales, Respiratory distress, Rhonchi, Stridor - Cardiovascular Cardiovascular Exam: Regular rate, Normal rhythm, Normal heart sounds Peripheral Pulses: 2+: Radial (R), Radial (L), Dorsalis Pedis (R), Dorsalis Pedis (L) - GI/Abdominal GI/Abdominal exam: Soft, Normal bowel sounds. negative: Tenderness - Rectal Rectal exam: Deferred - exam: Deferred - Extremities Extremities exam: Normal inspection, Full ROM, Normal capillary refill. negative: Pedal edema, Tenderness - Neurological Neurological exam: Alert, Normal gait, Oriented X3. negative: Abnormal gait, Motor sensory deficit - Psychiatric Psychiatric exam: Normal affect, Normal mood. negative: Anxious - Skin Skin exam: Dry, Normal color, Warm. negative: Rash Hospitalization - Hospitalization Admission Diagnosis: 1. Acute Asthma Exacerbation with Influenza. - Problem List/Discharge Diagnosis (1) Asthma exacerbation Current Visit: Yes Status: Acute Discharge Diagnosis: Asthma severity: unspecified severity Asthma persistence: persistent Qualified Code(s): J45.901 - Unspecified asthma with (acute) exacerbation Base Code: J45.901 - UNSPECIFIED ASTHMA WITH (ACUTE) EXACERBATION Comment: 07/12/19 - Pulse ox 89-90% RA in ED, supplemental oxygen to keep pulse ox >92%, has remained on RA all day - CXR: no acute process - Afebrile this admission - WBC remains stable, 17.6, 13.6, 14.4 - CRP improving, 9.23 to 8.86 - Continue Solumedrol and scheduled albuterol nmt - Will continue Prednisone 40mg daily x 5 more days with scheduled nmt at home - Adding Breo (2) Influenza Current Visit: Yes Status: Acute Base Code: J11.1 - FLU DUE TO UNIDENTIFIED INFLUENZA VIRUS W OTH RESP MANIFEST Comment: 07/12/19 - Influenza A&B positive - Tamiflu 75mg BID x 5 days total - Droplet precautions in place - Increase fluids - Discussed transmission of disease (3) DVT prophylaxis Current Visit: Yes Status: Acute Base Code: Z29.9 - ENCOUNTER FOR PROPHYLACTIC MEASURES, UNSPECIFIED Comment: 07/12/19 - Low risk due to age - Encourage ambulation within the room (4) Full code status Current Visit: Yes Status: Acute Base Code: Z78.9 - OTHER SPECIFIED HEALTH STATUS Comment: 07/12/19 - Full code this admission - Hospitalization Course Disposition: Home, Self-Care Hospital Course: 43 year old female patient presented to ED for evaluation of worsening SOB. Patient woke up 12 hours prior with fatigue, SOB, cough, and chills/fever. Patient reports being seen in [facility] earlier that day and diagnosed with Influenza A&B and started on Tamiflu. Patient reports a history of asthma which has been worsening over the past 24 hours. Received Solumedrol 125mg IM while in [facility], and had been using her nebulizer q4h with no relief. PMH: asthma (advair and nebulizer), current smoker PCP: Dr. Hamilton ED Course: CXR: no acute cardiopulmonary process Influenza A&B positive CRP 9.23 WBC 17.6 Solumedrol, Duoneb q4h, supplemental oxygen, fluids 07/11/19: Patient A&O x 4, resting comfortably in bed. Conversational dyspnea continues, receiving supplemental oxygen 2L via NC. Continue with steroids and treatments due to continued wheezing. 07/12/19: Patient A&O x 4, sitting up in bed. Dyspnea improved, improvement in air movement today. Continue Prednisone and scheduled albuterol. Complete Tamiflu course for influenza. Follow-up with PCP in 7-10 days. Procedures: Imaging and X-Rays 07/11/19 08:00 CHEST 2 VIEWS [RAD] Routine Abnormal Labs: Abnormal Lab Results 07/10/19 07/10/19 07/10/19 Range/Units 18:15 18:15 18:15 WBC 17.6 H (4.2-12.2) K/uL RBC (3.80-5.40) M/uL Hgb (11.6-16.0) gm/dl Hct (35.0-47.0) % MCHC 31.3 L (32-36) g/dl RDW (11.5-14.5) % MPV 10.9 H (7.4-10.4) fl Neutrophils % 92.0 H (47-80) % Lymphocytes % (16-45) % Lymphocytes 4.0 L (16-45) % Sodium 135 L (136-145) mmol/L Chloride 96 L (98-107) mmol/L Random Glucose 172 H (74-109) mg/dL Calcium (8.6-10.0) mg/dL C-Reactive Protein 9.23 H (<0.5) mg/dL Total Protein 9.1 H (6.6-8.7) g/dL Albumin 5.1 H (4.0-5.0) g/dL 07/11/19 07/11/19 07/12/19 Range/Units 06:35 06:35 06:29 WBC 13.6 H 14.4 H (4.2-12.2) K/uL RBC 3.69 L (3.80-5.40) M/uL Hgb 10.7 L (11.6-16.0) gm/dl Hct 34.8 L (35.0-47.0) % MCHC 30.9 L 30.7 L (32-36) g/dl RDW 14.6 H (11.5-14.5) % MPV 10.9 H (7.4-10.4) fl Neutrophils % 88.0 H 92.0 H (47-80) % Lymphocytes % 2.7 L (16-45) % Lymphocytes 6.0 L 4.0 L (16-45) % Sodium (136-145) mmol/L Chloride 108 H (98-107) mmol/L Random Glucose 139 H (74-109) mg/dL Calcium (8.6-10.0) mg/dL C-Reactive Protein 8.86 H (<0.5) mg/dL Total Protein (6.6-8.7) g/dL Albumin (4.0-5.0) g/dL 07/12/19 Range/Units 06:29 WBC (4.2-12.2) K/uL RBC (3.80-5.40) M/uL Hgb (11.6-16.0) gm/dl Hct (35.0-47.0) % MCHC (32-36) g/dl RDW (11.5-14.5) % MPV (7.4-10.4) fl Neutrophils % (47-80) % Lymphocytes % (16-45) % Lymphocytes (16-45) % Sodium (136-145) mmol/L Chloride 111 H (98-107) mmol/L Random Glucose 117 H (74-109) mg/dL Calcium 8.5 L (8.6-10.0) mg/dL C-Reactive Protein (<0.5) mg/dL Total Protein (6.6-8.7) g/dL Albumin (4.0-5.0) g/dL Condition at Discharge: (2) Stable Discharge Medications - Discharge Medications Prescriptions: Albuterol Sulfate 0.083% [Neb] [Albuterol Sulfate] 2.5 mg INH Q4H PRN #30 nebulization solution PRN Reason: Difficulty In Breathing Ipratropium/Albuterol [Duoneb] 3 ml INH RESP.Q4H.WA PRN #30 ampul.neb PRN Reason: Difficulty In Breathing Home Medications: Ambulatory Orders Fexofenadine/Pseudoephedrine [Monica-D 24 Hour Tablet] 1 tab PO QD tab 11/01/17 [Last Taken 07/10/19] Budesonide/Formoterol Fumarate [Symbicort 160-4.5 Mcg Inhaler] 2 puff IH BID puff 05/31/18 [Last Taken 07/10/19] Albuterol Sulfate [Ventolin Hfa] 1 - 2 puff IH .EVERY 4-6 HOURS PRN #1 inhaler 07/01/18 [Last Taken 07/10/19] Albuterol Sulfate 0.083% [Neb] [Albuterol Sulfate] 2.5 mg INH Q4H PRN #30 nebulization solution 07/12/19 [Last Taken Unknown] Ipratropium/Albuterol [Duoneb] 3 ml INH RESP.Q4H.WA PRN #30 ampul.neb 07/12/19 [Last Taken Unknown] Discharge Plan - Discharge Instructions Activity at Discharge: Increase Activity as Tolerated Diet at Discharge: Regular Diet Instructions: Asthma (DC) Additional Instructions: Complete the full course of Tamiflu you received Complete the full course of Prednisone 50mg tabs you received Alternate Albuterol and Duoneb in your nebulizer every 2-4 hours Follow-up with PCP in 7-10 days May resume home diet as tolerated Resume home medications Resume activity as tolerated If conditions worsen, return to the nearest emergency department Thank you for choosing [facility]!! Quality Measures - Quality Measures Quality Measures: Documentation of Current Medications in Medical Record, Screening for High Blood Pressure and F/U Documented - Current Medications Quality Measure: Measure #130: Documentation of Current Medications Documentation of Current Medications: <Current Medications Documented/Reviewed> [[id number]] - Blood Pressure Screening Quality Measure: Screening for High Blood Pressure and Follow-Up Documented Does Patient Have Any of the Following: No Blood Pressure Classification: Pre-Hypertensive BP Reading Systolic Measurement: 139 Diastolic Measurement: 89 Screening for High Blood Pressure: < Pre-Hypertensive BP, F/U Documented > [[id number]] Pre-Hypertensive Follow-up Interventions: Referral to alternative/primary care provider. - Elder Abuse Suspicion Index EASI Reference Information: Nikko WHITE, Alisa Martin, Chris Finnegan, Adi Baum.Development and validation of a tool to assist physicians identification of elder abuse: The Elder Abuse Suspicion Index (EASI ). Journal of Elder Abuse and Neglect, 2008; 20 (3): 276-300.
== END 2019-07-12 18:08 | disposition home or self-care (01) ==
LOC: ER 18:05 → MEDSURG 21:26
PROVIDERS: ADMIT Internal Medicine; ATTEND Internal Medicine
DX: J45.901 Unspecified asthma with (acute) exacerbation (principal); J11.1 Influenza due to unidentified influenza virus with other respiratory manifestations; R05 Cough; K21.9 Gastro-esophageal reflux disease without esophagitis; F17.210 Nicotine dependence, cigarettes, uncomplicated
CPT/HCPCS: 71046; 80048; 80053; 85027; 86140; 94640; 94667; 94761; 99217; 99220; 99285; J2930; J7030; J7613